=== PATIENT | female | born 1995 | race African-American/Black ===

== ENCOUNTER 2024-07-28 06:27 | Emergency (ER) | payer SELFPAY ==
[~2024-07-28] VITALS: Ht 170.2 cm; Wt 86.0 kg
[2024-07-28 06:31] VITALS: O2SAT 98
[2024-07-28] MEDS ORDERED: TOPUD PO (07:46)
[2024-07-28] MEDS ORDERED: AMOX1TAB16 PO (07:46)
[2024-07-28 08:06] VITALS: BP 142/62; PULSE 85; RESP 16; TEMP 36.7; O2SAT 98
[2024-07-28] MEDS: ACETAMINOPHEN 325MG TABLET PO ONE (08:06)
== END 2024-07-28 08:23 | disposition home or self-care (01) ==
LOC: ER 06:54
DX: J02.9 Acute pharyngitis, unspecified (principal); Z79.899 Other long term (current) drug therapy
CPT/HCPCS: 87070; 87430; 99283